=== PATIENT | female | born 1965 | race African-American/Black ===

== ENCOUNTER 2017-10-14 23:03 | Emergency (ER) | payer MEDICAID ==
[~2017-10-14] VITALS: Ht 175.3 cm; Wt 64.0 kg
[~2017-10-14 23:03] MED LIST: BENA40TA3 PO; EDURANT PO; GABA-290 PO; HARVONI PO; LAMIVUDINE PO; MONT10TA24 PO; RANI150T43 PO; SUCR1ORA2 PO; TIVICAY PO; VENL150T3 PO; VITAMIN D PO; ZIAGEN PO
[2017-10-15 00:02] VITALS: BP 134/84
== END 2017-10-15 05:50 | disposition left against medical advice (07) ==
LOC: ER 23:03
DX: R45.851 Suicidal ideations (principal); I10 Essential (primary) hypertension; B19.20 Unspecified viral hepatitis C without hepatic coma; F17.200 Nicotine dependence, unspecified, uncomplicated; F14.10 Cocaine abuse, uncomplicated; Z53.21 Procedure and treatment not carried out due to patient leaving prior to being seen by health care provider

== ENCOUNTER 2018-01-03 20:35 | Inpatient (IN) | payer MEDICAID ==
[~2018-01-03] VITALS: Ht 167.6 cm; Wt 85.7 kg
[~2018-01-03 20:35] MED LIST changes: -BENA40TA3 PO; +BENA40TA9 PO
[2018-01-03 23:25] LABS: HEMATOCRIT. 24.3 % (36.0-48.0); HEMOGLOBIN. 8.3 g/dL (12.0-16.0); MEAN CORPUSCULAR HEMOGLOBIN 32.6 pg (28.0-32.0); MEAN CORPUSCULAR VOLUME 96.1 fL (81.0-99.0); MEAN PLATELET VOLUME 5.8 fl (7.4-10.4); PLATELET 331 x1000/uL (130-400); RED BLOOD CELL COUNT 2.53 mill/uL (4.2-5.4); RED CELL DISTRIBUTION WIDTH 19.3 % (11.6-14.6)
[2018-01-03 23:32] LABS: CHLORIDE 105 mEq/L (98-107)
[2018-01-03 23:38] LABS: D-DIMER 1.43 mg/L FEU (<0.50); INR 1.1; PROTHROMBIN TIME 10.7 sec (9.1-11.1)
[2018-01-04 00:36] LABS: ATYPICAL LYMPHOCYTES 2; PLATELET ESTIMATE NORMAL
[2018-01-04] MEDS ORDERED: IOHEXOL-350 100 ML BOTTLE ONE ×2 (02:38→02:46)
[2018-01-04 10:00] VITALS: BP 134/73
[2018-01-04] MEDS ORDERED: DAPS100T PO (10:10)
[2018-01-04] MEDS ORDERED: ARIP20TA2 PO (10:10)
[2018-01-04] MEDS ORDERED: CARV3.1242 PO (10:10)
[2018-01-04] MEDS ORDERED: DIPH50CA38 PO (10:10)
[2018-01-04] MEDS ORDERED: RISP1TAB26 PO (10:10)
[2018-01-04] MEDS ORDERED: GABA-531 PO (10:10)
[2018-01-04] MEDS ORDERED: EMTR1TAB13 PO (10:12)
[2018-01-04] MEDS ORDERED: SODIUM CHLORIDE 0.9% 1,000 ML IV SCH (11:14)
[2018-01-04] MEDS ORDERED: IPRATROPIUM/ALBUTEROL 0.5-3(2.5)MG/3ML NEB INH PRN (11:15)
[2018-01-04] MEDS ORDERED: GUAIFENESIN 200MG/10ML SUGAR FREE UDC PO PRN (11:15)
[2018-01-04] MEDS ORDERED: HYDROCODONE/ACETAMINOPHEN 5/325MG TABLET PO PRN (11:15)
[2018-01-04] MEDS ORDERED: DOCUSATE SODIUM 100MG CAPSULE PO PRN (11:15)
[2018-01-04] MEDS ORDERED: ONDANSETRON HCL 4MG/2ML INJ IV PRN (11:15)
[2018-01-04] MEDS ORDERED: MAGNESIUM/ALUMINUM HYDROXIDE/SIMETHICONE 30ML UDC PO PRN (11:15)
[2018-01-04] MEDS ORDERED: CLONIDINE 0.1MG TABLET PO PRN (11:15)
[2018-01-04] MEDS ORDERED: ACETAMINOPHEN 325MG TABLET PO PRN (11:15)
[2018-01-04 12:06] VITALS: BP 106/60
[2018-01-04] MEDS ORDERED: MEDICATION NOT ON FORMULARY EA (Gabapentin 300 MG) PO SCH (13:00)
[2018-01-04] MEDS: GABAPENTIN 300MG CAPSULE PO SCH ×2 (13:00→17:55)
[2018-01-04] MEDS: ENOXAPARIN 40MG/0.4ML SYR SUBCUT SCH (13:30)
[2018-01-04] MEDS ORDERED: INFLUENZA VIRUS VACCINE(AFLURIA) 0.5ML SYR IM ONE (15:30)
[2018-01-04 16:23] VITALS: BP 118/70
[2018-01-04 17:26] LABS: CLARITY URINE CLEAR (CLEAR); COLOR URINE YELLOW (YELLOW); KETONES URINE NEGATIVE (NEGATIVE); LEUKOCYTE ESTERASE URINE 1+ (NEGATIVE); NITRITE URINE NEGATIVE (NEGATIVE); OCCULT BLOOD URINE NEGATIVE (NEGATIVE); PH URINE 6.5 (4.5-8.0); PROTEIN URINE NEGATIVE (NEGATIVE); SPECIFIC GRAVITY URINE 1.018 (1.005-1.030); UROBILINOGEN URINE 0.2 E.U./dL (0.2-1.0)
[2018-01-04 17:47] LABS: *AMPHETAMINES SCREEN URINE NEGATIVE (NEGATIVE); *BARBITURATES SCREEN URINE NEGATIVE (NEGATIVE); *BENZODIAZEPINES SCREEN URINE NEGATIVE (NEGATIVE); *COCAINE SCREEN URINE NEGATIVE (NEGATIVE)
[2018-01-04 17:48] LABS: CANNABINOID URINE SCREEN NEGATIVE (NEGATIVE); METHADONE URINE SCREEN NEGATIVE (NEGATIVE); OPIATES URINE SCREEN NEGATIVE (NEGATIVE); PHENCYCLIDINE URINE SCREEN NEGATIVE (NEGATIVE)
[2018-01-04] MEDS: RISPERIDONE 1MG TABLET PO SCH (17:55)
[2018-01-04 19:37] LABS: CREATINE KINASE 36 IU/L (26-192); CREATINE KINASE MB FRACTION < 1.0 ng/mL (0.5-3.6)
[2018-01-04 20:00] VITALS: BP 106/65
[2018-01-04] MEDS: CARVEDILOL 3.125 MG TABLET PO SCH (22:18)
[2018-01-05 00:01] LABS: CREATINE KINASE 33 IU/L (26-192); CREATINE KINASE MB FRACTION < 1.0 ng/mL (0.5-3.6)
[2018-01-05 01:30] VITALS: BP 100/57
[2018-01-05 04:00] VITALS: BP 121/79
[2018-01-05 08:00] VITALS: BP 128/82
[2018-01-05 08:00] LABS: BASOPHILS % 1.1 % (0.0-2.0); EOSINOPHILS % 0.1 % (0.0-5.0); HEMOGLOBIN. 8.9 g/dL (12.0-16.0); MEAN CORPUSCULAR HEMOGLOBIN 32.9 pg (28.0-32.0); MEAN CORPUSCULAR VOLUME 96.1 fL (81.0-99.0); MEAN PLATELET VOLUME 6.1 fl (7.4-10.4); MONOCYTES % 14.9 % (2.0-8.0); NEUTROPHILS % 35.9 % (40.0-76.0); PLATELET 343 x1000/uL (130-400); RED BLOOD CELL COUNT 2.71 mill/uL (4.2-5.4)
[2018-01-05] MEDS: ARIPIPRAZOLE 10MG TABLET PO SCH ×2 (08:45→08:51)
[2018-01-05] MEDS: RISPERIDONE 1MG TABLET PO SCH (08:45)
[2018-01-05] MEDS: GABAPENTIN 300MG CAPSULE PO SCH ×2 (08:45→13:01)
[2018-01-05] MEDS: CARVEDILOL 3.125 MG TABLET PO SCH (08:46)
[2018-01-05] MEDS: ENOXAPARIN 40MG/0.4ML SYR SUBCUT SCH (08:46)
[2018-01-05] MEDS ORDERED: DAPSONE 100MG TABLET PO SCH (09:00)
[2018-01-05 09:21] LABS: CHLORIDE 102 mEq/L (98-107)
[2018-01-05 09:43] LABS: T4 FREE 2.02 ng/dL (0.76-1.46)
[2018-01-05 12:00] VITALS: BP 113/71
[2018-01-05 16:08] VITALS: BP 113/71
[2018-01-07 19:06] LABS: *HIV-1 RNA BY PCR <20 copies/mL (.)
== END 2018-01-05 17:18 | disposition home or self-care (01) | DRG 194 ==
LOC: ER 20:35 → 6WST 01-04 02:07 → EDBEDREQ 01-04 02:10 → EDBEDREQTM 01-04 02:10 → ENRESERV 01-04 08:37 → CANBEDREQ 01-04 08:44
PROVIDERS: ADMIT Internal Medicine; ATTEND Internal Medicine
DX: I11.0 Hypertensive heart disease with heart failure (principal); E43 Unspecified severe protein-calorie malnutrition; I50.33 Acute on chronic diastolic (congestive) heart failure; B19.20 Unspecified viral hepatitis C without hepatic coma; D64.9 Anemia, unspecified; E78.5 Hyperlipidemia, unspecified; H54.8 Legal blindness, as defined in USA; K44.9 Diaphragmatic hernia without obstruction or gangrene; Z96.649 Presence of unspecified artificial hip joint; F14.90 Cocaine use, unspecified, uncomplicated; R60.0 Localized edema; Z88.2 Allergy status to sulfonamides; Z79.899 Other long term (current) drug therapy; M94.0 Chondrocostal junction syndrome [Tietze]
CPT/HCPCS: 36415; 71045; 71275; 80305; 82550; 82553; 83880; 84439; 84443; 84484; 85379; 87536; 93005; 93970; 99285; J1650; J7030; Q9967

== ENCOUNTER 2020-01-18 22:44 | Emergency (ER) | payer MEDICAID ==
[~2020-01-18] VITALS: Ht 162.6 cm; Wt 82.0 kg
[~2020-01-18 22:44] MED LIST changes: +ARIP20TA2 PO; +CARV3.1242 PO; +DAPS100T PO; +DIPH50CA38 PO; -EDURANT PO; +EMTR1TAB13 PO; -GABA-290 PO; +GABA-531 PO; -HARVONI PO; -LAMIVUDINE PO; -MONT10TA24 PO; -RANI150T43 PO; +RISP1TAB26 PO; -SUCR1ORA2 PO; -VENL150T3 PO; -VITAMIN D PO; -ZIAGEN PO
[2020-01-18 23:12] VITALS: BP 100/64
[2020-01-19 00:29] LABS: BASOPHILS % 0.4 % (0.0-2.0); EOSINOPHILS % 2.1 % (0.0-5.0); HEMATOCRIT. 37.1 % (36.0-48.0); HEMOGLOBIN. 12.5 g/dL (12.0-16.0); LYMPHOCYTES % 29.1 % (20.0-50.0); MEAN CORPUSCULAR HEMOGLOBIN 32.4 pg (28.0-32.0); MEAN CORPUSCULAR VOLUME 95.8 fL (81.0-99.0); MEAN PLATELET VOLUME 7.2 fl (7.4-10.4); MONOCYTES % 9.4 % (2.0-8.0); PLATELET 296 x1000/uL (130-400); RED BLOOD CELL COUNT 3.87 mill/uL (4.2-5.4); RED CELL DISTRIBUTION WIDTH 13.4 % (11.6-14.6)
[2020-01-19 00:44] LABS: CHLORIDE 107 mEq/L (98-107)
== END 2020-01-19 02:15 | disposition home or self-care (01) ==
LOC: ER 22:44
DX: R42 Dizziness and giddiness (principal); R55 Syncope and collapse; I11.0 Hypertensive heart disease with heart failure; I50.9 Heart failure, unspecified; Z79.899 Other long term (current) drug therapy; Z88.2 Allergy status to sulfonamides
CPT/HCPCS: 36415; 71045; 80053; 85025; 93005; 99285